=== PATIENT | male | born 1985 | race Caucasian/White ===

== ENCOUNTER 2019-03-22 15:21 | Emergency (ER) | payer OTHER ==
--- NOTE | 2019-03-22 15:57 | ED Physician Chart ---
ED Chief Complaint/HPI - Patient Information Date Seen:: 03/22/19 Time Seen:: 15:30 Chief Complaint:: 2 days redness min pain no flying object visson good Allergies:: Allergies Allergy/AdvReac Type Severity Reaction Status Date / Time No Known Allergies Allergy Verified 03/22/19 15:27 Historian:: Patient Review:: Nurse's Note Reviewed ED Review of Systems - Review of Systems General/Constitutional: No fever Skin: Rash (redness r upper only) Head: No headache Eyes: No loss of vision ENT: No earache Neck: No neck pain Cardio Vascular: No chest pain Pulmonary: No SOB GI: No nausea Musculoskeletal: Bone or joint pain Endocrine: No polyuria Hematopoietic: No bruising Neurological: No syncope ED Past Medical History - Past Medical History Past Medical History: No significant medical hx ED Physical Exam - Physical Examination General/Constitutional: Awake, Well-developed, well-nourished, Alert, GCS 15, Non-toxic appearing, Ambulatory Head: Atraumatic Eyes: Lids, conjuctiva normal (no punctate erruption redess localized to lid) ENMT: External ears, nose nl Neck: Nontender Respiratory: Nl effort/Exclusion, Clear to Auscultation Cardio Vascular: RRR, No murmur, gallop, rubs, NL S1 S2 Neuro/Psych: Alert/oriented ED Assessment - Assessment General Assessment: early [facility] Septic Shock - . Is Septic Shock (SBP<90, OR Lactate>4 mmol\L) present?: No ED Reassessment (Disposition) - Reassessment Reassessment Condition:: Unchanged - Aftercare/Follow up Instructions Aftercare/Follow-Up Instructions:: Counseled pt regarding lab results/diagnosis & need follow up - Patient Disposition Discharge/Transfer:: Home Condition at Disposition:: Stable, Unchanged
== END 2019-03-22 16:00 | disposition home or self-care (01) ==
LOC: ER 15:21
DX: H57.11 Ocular pain, right eye (principal); H57.89 Other specified disorders of eye and adnexa
CPT/HCPCS: Z7502